=== PATIENT | female | born 1935 | race Caucasian/White ===

== ENCOUNTER → 2017-02-20 | Outpatient (CLI) | payer MEDICARE ==
[~2017-02-20] VITALS: Ht 154.9 cm; Wt 70.2 kg
[~2017-02-20] MED LIST: ASPI81TA11 PO; ATOR10TA15 PO; CALC1TAB53 PO; CELE200C PO; CHLORHEXIDINE GLUCONATE 2 % 1 PACK (2 CLOTHS) TOPICAL PRN; INSULIN HUMAN REGULAR 1,000 UNITS/10 ML VIAL SQ PRN; IPRA0.03 EACH NARE; LACTATED RINGER'S 1000 ML IV PRN; LEVO50TA4 PO; LEVO75TA3 PO; LISI-515 PO; METOPROLOL TARTRATE 25 MG TAB PO PRN; MULT1TAB PO; POVIDONE IODINE 5% (ANTISEPSIS KIT) 4 APPLICATIONS EACH NARE PRN; PROPOFOL 200 MG/20 ML AMP IV ONE; SODIUM CHLORID 0.9% 500 ML IV PRN; TEMA30CA PO; TRAM50TA PO; TUMS500C CHEW; ZANT150T2 PO
[2017-02-20 13:19] VITALS: BP 151/71; PULSE 65; RESP 16; TEMP 98.3; O2SAT 96
[2017-02-20 15:42] VITALS: TEMP 98.4
[2017-02-20 16:00] VITALS: BP 136/69; PULSE 68; RESP 18; O2SAT 96
--- NOTE | 2017-02-20 16:11 | MR ---
cc: JOHN MANN M.D. DEBBI,DAMON HOLDEN M.D., M.D. DATE: 02/20/2017. PREOPERATIVE DIAGNOSIS: Past history of polyps. POSTOPERATIVE DIAGNOSIS: Possible colon carcinoma at 45 cm. PROCEDURE PERFORMED: Incomplete colonoscopy to 45 cm due to stricture at that level and possible carcinoma. SURGEON: Ryan Emmanuel M.D. ESTIMATED BLOOD LOSS: None. OPERATIVE FINDINGS: This patient had known polyps in the past and was followed by Dr. Bang Mann but due to insurance reasons, could not return to him. A few years ago she had a colonoscopy done and she had a large polyp at about 40 cm. She was sent to [facility] for EMR resection of this. Subsequent to that, she returned to Dr. Mann and was found to have a recurrence in December of 2014, about two years ago. There was some small recurrence there that he removed. There was also a stricture there and he was able to pass the stricture with a pediatric scope to the cecum. He recommended that she come back in one year for follow up of this, and it has been two years since that time. At colonoscopy today, she was found to have extensive diverticular disease with a poor prep, probably due to the stricture. I first started with the adult colonoscope but could not get through her sigmoid and decided to use the pediatric scope and I was able to easily get through the sigmoid colon up to the lesion at 45 cm where there was a distinct stricture. It appeared to be mostly smooth but about two-thirds of it was coated with a villous-appearing tissue that was firm on biopsy. I went ahead and took multiple biopsies of this area but I could not pass this fairly tight stricture. OPERATIVE TECHNIQUE: The patient was placed on the table in the left lateral position and given intravenous monitored anesthesia care. The colonoscope was introduced through the anal canal and taken to the rectum and up into the sigmoid colon. I could pass the adult scope so I removed the adult scope and used the pediatric colonoscope. The scope was introduced into the anal canal and into the rectum, sigmoid colon, up into the upper sigmoid or distal descending colon at about 45 cm. There was a stricture and a lesion as mentioned above. Multiple biopsies were taken. This was suspicious for a carcinoma, although there may just be a stricture there from her previous EMR and recurrent polypoid disease. This likely will need surgical resection to remove. After the biopsies were taken, the scope was circumferentially removed to circumferentially look at the mucosa. She had extensive diverticular disease. The scope was removed. The patient tolerated the procedure well and left the GI lab in good position. MD PAM Ron/[place] /3:49 PM /3:54 PM
== END ==
LOC: HEND 12:41
PROVIDERS: ATTEND Colon & Rectal Surgery
DX: Z12.11 Encounter for screening for malignant neoplasm of colon (principal); Z86.010 Personal history of colon polyps; K57.90 Diverticulosis of intestine, part unspecified, without perforation or abscess without bleeding; K56.69 Other intestinal obstruction; K63.9 Disease of intestine, unspecified
CPT/HCPCS: 88305

== ENCOUNTER 2017-04-01 10:04 | Inpatient (IN) | payer MEDICARE ==
[~2017-04-01] VITALS: Ht 154.9 cm; Wt 75.8 kg
[~2017-04-01 10:04] MED LIST changes: -BEDSIDE COMMODE1 MI1; -HYDR-3516 PO; -LEVO75TA3 PO
[2017-04-01] MEDS ORDERED: LEVO75TA3 PO ×2 (11:05)
[2017-04-01] MEDS ORDERED: IPRA0.03 EACH NARE ×2 (11:08)
[2017-04-07] MEDS ORDERED: NEOSTIGMINE 3 MG/3 ML SYR IV ONE (12:00)
[2017-04-07] MEDS ORDERED: ONDANSETRON HCL 4 MG/2 ML VIAL IV PUSH ONE (12:00)
[2017-04-07] MEDS ORDERED: PROPOFOL 200 MG/20 ML AMP IV ONE (12:00)
[2017-04-07] MEDS ORDERED: ePHEDrine/NS 25 MG/5 ML SYR IV ONE (12:00)
[2017-04-07] MEDS ORDERED: LACTATED RINGER'S 1000 ML INJ 1,000 ML IV ONE (12:00)
[2017-04-07] MEDS ORDERED: ALVIMOPAN 12 MG CAPSULE ONE (12:54)
[2017-04-07] MEDS ORDERED: ceFAZolin INJ 1,000 MG VIAL ONE (12:54)
[2017-04-07] MEDS ORDERED: metroNIDAZOLE 500 MG INJ 100 ML IV ONE (12:55)
[2017-04-07] MEDS ORDERED: SODIUM CHLORIDE 0.9% INJ 100 ML ONE (12:55)
--- NOTE | 2017-04-07 13:16 | PD.HP.UP ---
H&P Update Note The Pre-Admit History and Physical Examination regarding the above named patient was reviewed (including, but not limited to, vital signs, heart, lungs, co-morbid conditions), and upon re-examination it is noted that: the patient's condition has not significantly changed since the last examination. Ryan Emmanuel MD Apr 07, 2017 13:15
[2017-04-07] MEDS ORDERED: DEXAMETHASONE SOD PHOS 4 MG/ML VIAL ONE (13:37)
[2017-04-07] MEDS ORDERED: APREPITANT 40 MG CAP ONE (13:37)
[2017-04-07] MEDS ORDERED: MIDAZOLAM HCL 2 MG/2 ML VIAL ONE (13:37)
[2017-04-07] MEDS ORDERED: POVIDONE IODINE 5% (ANTISEPSIS KIT) 4 APPLICATIONS EACH NARE PRN (13:45)
[2017-04-07] MEDS ORDERED: ceFAZolin 1,000 MG/NS 100 ML IV SCH ×2 (13:45)
[2017-04-07] MEDS ORDERED: SODIUM CHLORID 0.9% 500 ML IV PRN (13:45)
[2017-04-07] MEDS ORDERED: CHLORHEXIDINE GLUCONATE 2 % 1 PACK (2 CLOTHS) TOPICAL PRN (13:45)
[2017-04-07] MEDS ORDERED: INSULIN HUMAN REGULAR 1,000 UNITS/10 ML VIAL SQ PRN (13:45)
[2017-04-07] MEDS ORDERED: METRONIDAZOLE 500 MG/100 ML ISONTONIC SOLN IV SCH (13:45)
[2017-04-07] MEDS ORDERED: LACTATED RINGER'S 1000 ML IV PRN (13:45)
[2017-04-07] MEDS ORDERED: METOPROLOL TARTRATE 25 MG TAB PO PRN (13:45)
[2017-04-07] MEDS ORDERED: ALVIMOPAN 12 MG CAPSULE - On Call PO SCH (14:00)
[2017-04-07] MEDS ORDERED: ACETAMINOPHEN 1000 MG/100 ML VIAL IV ONE (14:51)
[2017-04-07] MEDS ORDERED: NALOXONE HCL 0.4 MG/ML AMP IV PRN (16:15)
[2017-04-07] MEDS ORDERED: KETOROLAC TROMETHAMINE 30 MG/ML (IVP) VIAL IVP PRN (16:15)
[2017-04-07] MEDS ORDERED: Post-op Orders (for Pharmacy) MISC XX ONE (16:15)
[2017-04-07] MEDS ORDERED: MORPHINE SULFATE 30 MG/30 ML PCA IV SCH (16:15)
[2017-04-07] MEDS ORDERED: POTASSIUM CHLOR 20 MEQ PREMIX 100 ML IV PRN (16:15)
[2017-04-07] MEDS ORDERED: ENALAPRILAT 1.25 MG/ML VIAL IV PRN (16:15)
[2017-04-07] MEDS ORDERED: POTASSIUM CHLOR 40 MEQ PREMIX 100 ML IV PRN (16:15)
[2017-04-07] MEDS ORDERED: ENALAPRILAT 2.5 MG/2 ML VIAL IV PRN (16:15)
[2017-04-07] MEDS: PCA - TOTAL MG MORPHINE DELIVERED PER SHIFT SCH ×2 (16:15→21:09)
[2017-04-07] MEDS ORDERED: SODIUM CHLORIDE 0.9% FLUSH 10 ML FLUSH IV FLUSH PRN (16:15)
[2017-04-07] MEDS ORDERED: BENZOCAINE 6 MG/MENTHOL 10 MG LOZENGE BUCCAL PRN (16:15)
[2017-04-07] MEDS ORDERED: ACETAMINOPHEN/HYDROcodone 325 MG/5 MG TAB PO PRN (16:15)
--- NOTE | 2017-04-07 16:18 | PD.OP ---
Operative Report Date of Surgery: Apr 07, 2017 Preoperative Diagnosis: (1) Cancer, colon Postoperative Diagnosis: (1) Cancer, colon Descending colon Procedure: Descending colectomy; colonoscopy Anesthesia: Gen E-T Surgeon: Ryan Emmanuel Insolvency Practitioner(s): Dr Gary Operation and Findings: Descending colon cancer Ryan Emmanuel MD Apr 07, 2017 16:18
[2017-04-07] MEDS ORDERED: fentaNYL CITRATE 250 MCG/5 ML AMP ONE (16:29)
[2017-04-07] MEDS ORDERED: *morphine SULFATE 8 MG/ML PERIprocedure ONLY ONE (16:37)
[2017-04-07 16:43] LABS: AUTOMATED NEUTROPHIL # 9.7 TH/MM3 (1.8-7.7); BASOPHIL % 0.3 % (0.0-2.0); EOSINOPHIL # 0.1 TH/MM3 (0-0.4); EOSINOPHIL % 0.4 % (0.0-4.0); HEMATOCRIT 40.1 % (35.0-46.0); HEMO FLAGS DIFF FINAL; LYMPH % 18.6 % (9.0-44.0); LYMPHOCYTE # 2.3 TH/MM3 (1.0-4.8); MEAN CELL VOLUME 88.4 FL (80.0-100.0); MEAN CORPUSCULAR HGB CONC 31.7 % (32.0-36.0); MONO % 3.3 % (0.0-8.0); NEUT % 77.4 % (16.0-70.0); PLATELET COUNT 262 TH/MM3 (150-450); RED BLOOD COUNT 4.53 MIL/MM3 (4.00-5.30); RED CELL DISTRIBUTION WIDTH 14.3 % (11.6-17.2); WHITE BLOOD COUNT 12.5 TH/MM3 (4.0-11.0)
[2017-04-07 17:00] LABS: BICARBONATE 21.5 MEQ/L (21.0-32.0); POTASSIUM 4.1 MEQ/L (3.5-5.1)
[2017-04-07] MEDS: D5-LR + KCL 20 MEQ INJ 1,000 ML IV SCH ×2 (17:12→22:01)
[2017-04-07] MEDS ORDERED: DO NOT ADM ANY ANTICOAGULANT DRUGS PRN (20:00)
[2017-04-07] MEDS: ceFAZolin 2 GM PREMIX 50 ML IV SCH (20:59)
[2017-04-07] MEDS: metroNIDAZOLE 500 MG INJ 100 ML IV SCH (20:59)
[2017-04-07] MEDS: SODIUM CHLORIDE 0.9% FLUSH 10 ML FLUSH IV FLUSH SCH (20:59)
[2017-04-07] MEDS ORDERED: FUROSEMIDE 20 MG/2 ML VIAL IV SCH (21:00)
[2017-04-07] MEDS: ATORVASTATIN 10 MG TAB PO SCH (21:00)
[2017-04-07 21:30] VITALS: BP 130/84; PULSE 75; RESP 10; TEMP 97.3; O2SAT 95
[2017-04-07] MEDS: DEXT 5%-NACL 0.9% 1000 ML INJ 1,000 ML IV SCH (22:00)
[2017-04-07] MEDS: ONDANSETRON HCL 4 MG/2 ML VIAL IV PRN ×2 (22:02→22:25)
[2017-04-07 23:00] VITALS: BP 140/60; PULSE 62; RESP 10; TEMP 97.4; O2SAT 96
[2017-04-08] VITALS (27 sets, daily range): BP systolic 119–147; BP diastolic 57–74; PULSE 48–88; RESP 14–18; TEMP 97.3–98.9; O2SAT 92–96
[2017-04-08] MEDS: D5-LR + KCL 20 MEQ INJ 1,000 ML IV SCH (03:55)
[2017-04-08] MEDS: ceFAZolin 2 GM PREMIX 50 ML IV SCH ×2 (04:00→13:00)
[2017-04-08] MEDS: DEXT 5%-NACL 0.9% 1000 ML INJ 1,000 ML IV SCH (05:13)
[2017-04-08] MEDS: LEVOTHYROXINE SODIUM 75 MCG TAB PO SCH (05:34)
[2017-04-08] MEDS: metroNIDAZOLE 500 MG INJ 100 ML IV SCH (05:35)
[2017-04-08] MEDS: PCA - TOTAL MG MORPHINE DELIVERED PER SHIFT SCH ×3 (05:35→21:50)
[2017-04-08 07:11] LABS: AUTOMATED NEUTROPHIL # 15.6 TH/MM3 (1.8-7.7); HEMATOCRIT 36.7 % (35.0-46.0); HEMO FLAGS DIFF FINAL; LYMPH % 5.9 % (9.0-44.0); LYMPHOCYTE # 1.1 TH/MM3 (1.0-4.8); MEAN CELL VOLUME 89.6 FL (80.0-100.0); MEAN CORPUSCULAR HEMOGLOBIN 27.9 PG (27.0-34.0); MEAN CORPUSCULAR HGB CONC 31.1 % (32.0-36.0); MONO % 9.4 % (0.0-8.0); NEUT % 84.7 % (16.0-70.0); PLATELET COUNT 270 TH/MM3 (150-450); RED BLOOD COUNT 4.09 MIL/MM3 (4.00-5.30); RED CELL DISTRIBUTION WIDTH 14.3 % (11.6-17.2); WHITE BLOOD COUNT 18.5 TH/MM3 (4.0-11.0)
--- NOTE | 2017-04-08 07:28 | MP ---
cc: TYREE EMMANUEL M.D., GREGORY J. M.D. SAXOUR, JOANNE D. M.D. DATE OF SURGERY 04/07/2017 PREOPERATIVE DIAGNOSIS Descending colon carcinoma. POSTOPERATIVE DIAGNOSIS Descending colon carcinoma. PROCEDURE Descending colectomy. ANESTHESIA General endotracheal. SURGEON Dr. Emmanuel SUPERVISOR CURING ROOM Dr. Gary ESTIMATED BLOOD LOSS 150 cc OPERATING TIME 1 hour and 45 minutes OPERATIVE FINDINGS This patient originally had a descending colon polyp treated by Dr. Bang Mann and them she was referred for EMR resection of this polyp several years ago. About a year after the MR was done, she had a mild colonic stricture at this area and had some residual polyp that was removed by Dr. Mann. The patient was told to follow up in a year and followed up in 2 years' time and at two years' time she had more of a pronounced stricture and on biopsy had adenocarcinoma present. For this reason a colectomy was recommended. She also had fairly extensive pelvic adhesions from previous hysterectomy along with some diverticulosis. She has had previous cholecystectomy and panniculectomy. At surgery today, exploration of the abdominal cavity revealed that the liver was palpably normal. The gallbladder was surgically absent. The stomach was normal as was the remainder of the colon and small bowel. The area in question was in the descending colon just over the left kidney; it was quite fibrotic probably from the EMR procedure and the inflammation and the stricture. Upon removing this area of the colon there was a small area of carcinoma present; it did not appear extensive and there was no evidence of any metastatic disease. She did have diverticulosis with some thickening of the sigmoid colon but she mainly had pelvic adhesions with looping of her sigmoid colon stuck in the pelvis to her bladder. This was all freed up and a left colectomy was done with an Ethicon LAM 55 stapling device. Intraoperative colonoscopy was done because we could not see proximal to the stricture preoperatively and a colonoscopy was normal intraoperatively. OPERATIVE TECHNIQUE The patient was placed on a table in spine position. After adequate general endotracheal anesthesia, her legs were placed in the perineal lithotomy position and the abdomen and perineum were prepped and draped in the usual manner. Midline incision was made from the pubis to the xiphoid and taken down through the linea alba and the peritoneal cavity was entered with the above-mentioned findings. There was omental adhesions to the transverse colon and the descending colon was densely stuck to the left kidney fat and kidney region. The sigmoid colon was also stuck. The left ureter was identified and protected at all times during the dissection. Since the lesion was in the upper descending colon distal to the splenic flexure, we elected to fully mobilize the sigmoid, descending colon, splenic flexure and transverse colon and resect that area and do a functional end-to-end anastomosis. The superior hemorrhoidal vessels were left intact and the descending branch of the left colic vessel was taken as the supply to this lesion. The vessels were clamped, cut and ligated and the colon had been fully mobilized along its sigmoid and descending colon and around the splenic flexure. There was a small laceration of the capsule of the spleen that was treated with electrocautery and Fibrillar. The transverse colon was fully mobilized, the omentum was fully mobilized from the transverse colon. Next, the proximal portion was chosen for division in the upper descending colon with Ethicon LAM 55 stapling device and the sigmoid colon was divided with Ethicon LAM 55 stapling device below the lesion after the mesentery had been divided. The anastomosis was carried out along the antimesenteric border of the colon using Ethicon LAM 55 stapling device and then the colotomy was closed with a TX 60 blue staple height stapling device. Two interrupted seromuscular sutures were placed at the apex of the staple line and the epiploica there were sutured together to prevent any tension on the staple line. Dr. Gary then did colonoscopy exam intraoperatively through the colon and the anastomosis to the cecum and the colonoscopy was normal. The anastomosis was leak tested with air in the colon and saline solution in the abdomen and no air leaks were identified. The scope was withdrawn and the air was also withdrawn. Hemostasis was maintained throughout with electrocautery and ligature and the abdominal contents were then replaced in the abdominal cavity in an coin box inspector manner. It should be mentioned that the sigmoid colon mobilized up out of the pelvis from the bladder flap from the hysterectomy straightening this colon. Once the bowels were replaced in the abdominal cavity in an coin box inspector manner, the abdominal cavity was closed in a single layer with a double-stranded #1 PDS closing the linea. Once this was done, the subcutaneous tissue was irrigated thoroughly with saline solution, aspirated dry. The abdominal cavity had been irrigated with several liters of saline solution, aspirated dry as well. The skin was then closed with running 3-0 Vicryl subcuticular suture and dressings were applied. Sponge, needle and instrument counts were poor as correct. The estimated blood loss was 150 cc. MD PAM Ron/[place] /4:25 PM /7:14 AM
[2017-04-08 07:41] LABS: BICARBONATE 21.1 MEQ/L (21.0-32.0); POTASSIUM 5.7 MEQ/L (3.5-5.1)
[2017-04-08] MEDS: LACTATED RINGER'S 1000 ML INJ 1,000 ML IV SCH ×2 (08:00→14:40)
[2017-04-08] MEDS ORDERED: FUROSEMIDE 40 MG/4 ML VIAL IV PUSH ONE (08:15)
--- NOTE | 2017-04-08 08:19 | HHI.PR ---
Subjective Remarks Sitting in chair. C/O nausea and pain. No vomiting. Small BM. Objective Vital Signs Date Time Temp Pulse Resp B/P Pulse Ox O2 Delivery O2 Flow Rate FiO2 04/08/17 06:00 14 04/08/17 06:00 59 04/08/17 05:35 14 04/08/17 05:00 54 04/08/17 04:00 59 04/08/17 03:30 97.5 63 14 123/72 94 04/08/17 03:30 94 Nasal Cannula 2.00 04/08/17 03:00 63 04/08/17 02:00 65 04/08/17 01:00 67 04/08/17 00:00 66 04/07/17 23:00 96 Nasal Cannula 2.00 04/07/17 23:00 97.4 62 10 140/60 96 04/07/17 21:30 97.3 75 10 130/84 95 04/07/17 21:30 95 Nasal Cannula 2.00 04/07/17 21:09 18 04/07/17 21:00 93 12 103/68 94 Nasal Cannula 4 04/07/17 20:00 98.0 95 14 158/82 95 Nasal Cannula 4 04/07/17 19:00 86 13 159/72 98 Nasal Cannula 4 04/07/17 18:19 86 20 147/111 98 Nasal Cannula 4 04/07/17 17:15 74 13 109/56 100 Nasal Cannula 4 04/07/17 17:13 12 04/07/17 17:00 72 13 115/66 99 Nasal Cannula 4 04/07/17 16:45 76 28 120/71 95 Nasal Cannula 4 04/07/17 16:30 74 12 123/64 92 Nasal Cannula 4 04/07/17 16:18 97.1 75 13 149/70 98 Simple Mask 8 I/O 04/07/17 04/07/17 04/07/17 04/08/17 04/08/17 04/08/17 07:00 15:00 23:00 07:00 15:00 23:00 Intake Total 2280 ml 3805 ml Output Total 470 ml 160 ml Balance 1810 ml 3645 ml Intake Oral 20 ml IV Total 880 ml 3785 ml Other 1400 ml Output Urine Total 300 ml 160 ml Estimated Blood Loss 170 ml # Bowel Movements 0 Result Diagram: 7/1262704/08/17627 Objective Remarks VS-S Abd: soft,binder on for comfort. I&Os- Decreased last night Labs- Creatinine up to 2.20. K+ sl elevated Assessment and Plan Assessment and Plan Stable POD#1 Increased creatinine with decreased renal function-urine remains clear. Remove K+ and Dextrose from IVs Lasix 40mg now then 20mg Q12H. IV at 150/hr Stop Toradol 15mg(only 1 dose given) Follow Renal function Ryan Emmanuel MD Apr 08, 2017 08:19
[2017-04-08] MEDS: PANTOPRAZOLE SODIUM 40 MG VIAL IVP SCH (08:52)
[2017-04-08] MEDS: LISINOPRIL 20 MG TAB PO SCH (08:53)
[2017-04-08] MEDS: ALVIMOPAN 12 MG CAPSULE - Post-op dosing PO SCH ×2 (08:53→20:22)
[2017-04-08] MEDS: ONDANSETRON HCL 4 MG/2 ML VIAL IV PRN ×2 (08:53→20:22)
[2017-04-08] MEDS: ASPIRIN EC 81 MG TABEC PO SCH (08:53)
[2017-04-08] MEDS: SODIUM CHLORIDE 0.9% FLUSH 10 ML FLUSH IV FLUSH SCH ×2 (09:00→20:22)
[2017-04-08] MEDS ORDERED: BUMETANIDE INJ 1 MG/4 ML VIAL IV ONE (17:45)
[2017-04-08] MEDS ORDERED: FUROSEMIDE 40 MG/4 ML VIAL IV PUSH SCH (20:00)
[2017-04-08] MEDS: ATORVASTATIN 10 MG TAB PO SCH (20:21)
[2017-04-08] MEDS: ACETAMINOPHEN/HYDROcodone 325 MG/5 MG TAB PO PRN (20:22)
[2017-04-08] MEDS ORDERED: ALVIMOPAN 12 MG CAPSULE PO SCH (21:00)
[2017-04-08] MEDS: ZOLPIDEM TARTRATE 5 MG TAB PO PRN (21:56)
[2017-04-09] VITALS (19 sets, daily range): BP systolic 118–169; BP diastolic 54–91; PULSE 62–92; RESP 16–18; TEMP 97.5–99.1; O2SAT 93–95
[2017-04-09] MEDS: LACTATED RINGER'S 1000 ML INJ 1,000 ML IV SCH ×4 (02:02→20:13)
[2017-04-09] MEDS: ACETAMINOPHEN/HYDROcodone 325 MG/5 MG TAB PO PRN ×2 (03:22→08:30)
[2017-04-09] MEDS: LEVOTHYROXINE SODIUM 75 MCG TAB PO SCH (05:36)
[2017-04-09] MEDS: PCA - TOTAL MG MORPHINE DELIVERED PER SHIFT SCH ×2 (05:36→14:00)
[2017-04-09] MEDS ORDERED: BUMETANIDE INJ 1 MG/4 ML VIAL IV PUSH ONE (06:00)
[2017-04-09] MEDS: PANTOPRAZOLE SODIUM 40 MG VIAL IVP SCH (08:29)
[2017-04-09] MEDS: ALVIMOPAN 12 MG CAPSULE - Post-op dosing PO SCH ×2 (08:29→20:13)
[2017-04-09] MEDS: SODIUM CHLORIDE 0.9% FLUSH 10 ML FLUSH IV FLUSH SCH ×2 (08:30→20:13)
[2017-04-09] MEDS: ASPIRIN EC 81 MG TABEC PO SCH (08:30)
[2017-04-09 10:12] LABS: AUTOMATED NEUTROPHIL # 11.3 TH/MM3 (1.8-7.7); BASOPHIL % 0.1 % (0.0-2.0); EOSINOPHIL # 0.1 TH/MM3 (0-0.4); EOSINOPHIL % 0.7 % (0.0-4.0); HEMATOCRIT 28.5 % (35.0-46.0); HEMO FLAGS DIFF FINAL; LYMPH % 10.9 % (9.0-44.0); LYMPHOCYTE # 1.5 TH/MM3 (1.0-4.8); MEAN CORPUSCULAR HEMOGLOBIN 28.5 PG (27.0-34.0); MEAN CORPUSCULAR HGB CONC 32.4 % (32.0-36.0); MONO % 6.5 % (0.0-8.0); NEUT % 81.8 % (16.0-70.0); PLATELET COUNT 209 TH/MM3 (150-450); RED BLOOD COUNT 3.24 MIL/MM3 (4.00-5.30); RED CELL DISTRIBUTION WIDTH 15.2 % (11.6-17.2); WHITE BLOOD COUNT 13.9 TH/MM3 (4.0-11.0)
[2017-04-09 10:54] LABS: BICARBONATE 25.6 MEQ/L (21.0-32.0); POTASSIUM 4.1 MEQ/L (3.5-5.1)
[2017-04-09] MEDS: LISINOPRIL 20 MG TAB PO SCH (12:24)
--- NOTE | 2017-04-09 13:36 | HHI.PR ---
Subjective Remarks Ambulated. Less pain. No N or V. No BMs Objective Vital Signs Date Time Temp Pulse Resp B/P Pulse Ox O2 Delivery O2 Flow Rate FiO2 04/09/17 12:11 94 04/09/17 12:00 73 04/09/17 12:00 94 Nasal Cannula 2.00 04/09/17 12:00 98.9 73 16 125/57 94 04/09/17 08:00 66 04/09/17 08:00 93 Room Air 04/09/17 08:00 98.6 84 18 124/68 93 04/09/17 06:00 62 04/09/17 06:00 16 04/09/17 05:36 16 04/09/17 05:00 68 04/09/17 04:00 83 04/09/17 03:30 95 Nasal Cannula 2.00 04/09/17 03:30 99.1 78 16 121/54 95 04/09/17 03:00 71 04/09/17 02:00 71 04/09/17 01:00 71 04/09/17 00:00 66 04/08/17 23:20 98.3 82 16 124/57 92 04/08/17 23:20 Nasal Cannula 2.00 04/08/17 23:00 70 04/08/17 22:00 16 04/08/17 22:00 76 04/08/17 21:50 16 04/08/17 21:00 82 04/08/17 20:00 72 04/08/17 19:45 98.4 74 16 126/58 94 04/08/17 19:00 69 04/08/17 18:03 82 04/08/17 17:26 53 04/08/17 16:00 69 04/08/17 15:00 60 04/08/17 15:00 97.3 60 18 119/74 96 04/08/17 14:28 88 04/08/17 14:28 18 I/O 04/08/17 04/08/17 04/08/17 04/09/17 04/09/17 04/09/17 07:00 15:00 23:00 07:00 15:00 23:00 Intake Total 3805 ml 2450 ml 1680 ml Output Total 160 ml 150 ml 1125 ml Balance 3645 ml 2300 ml 555 ml Intake Oral 20 ml 600 ml 480 ml IV Total 3785 ml 1850 ml 1200 ml Output Urine Total 160 ml 150 ml 1125 ml # Bowel Movements 0 1 0 Result Diagram: 04/09/1740 04/09/1740 Objective Remarks VS-S Abd: soft,binder on for comfort. I&Os- Much better with Bumex Labs- Improved renal function Assessment and Plan Assessment and Plan Stable POD#2 IV at 50/hr Follow Renal function Ryan Emmanuel MD Apr 09, 2017 13:36
[2017-04-09] MEDS: BUMETANIDE INJ 1 MG/4 ML VIAL IV PUSH SCH (20:12)
[2017-04-09] MEDS: ATORVASTATIN 10 MG TAB PO SCH (20:13)
[2017-04-09] MEDS: ZOLPIDEM TARTRATE 5 MG TAB PO PRN (21:52)
[2017-04-10] VITALS: BP 132/61; PULSE 86; RESP 18; TEMP 98.6; O2SAT 94
[2017-04-10] MEDS: ACETAMINOPHEN/HYDROcodone 325 MG/5 MG TAB PO PRN (01:12)
[2017-04-10] MEDS: LEVOTHYROXINE SODIUM 75 MCG TAB PO SCH (04:50)
[2017-04-10 06:05] LABS: BICARBONATE 27.8 MEQ/L (21.0-32.0); POTASSIUM 4.2 MEQ/L (3.5-5.1)
[2017-04-10] MEDS: LISINOPRIL 20 MG TAB PO SCH (07:39)
[2017-04-10] MEDS: PANTOPRAZOLE SODIUM 40 MG VIAL IVP SCH (07:40)
[2017-04-10] MEDS: ASPIRIN EC 81 MG TABEC PO SCH (07:40)
[2017-04-10] MEDS: ALVIMOPAN 12 MG CAPSULE - Post-op dosing PO SCH ×2 (07:40→20:03)
[2017-04-10] MEDS: BUMETANIDE INJ 1 MG/4 ML VIAL IV PUSH SCH (07:40)
[2017-04-10] MEDS: SODIUM CHLORIDE 0.9% FLUSH 10 ML FLUSH IV FLUSH SCH ×2 (07:40→20:00)
[2017-04-10 08:00] VITALS: BP 146/62; PULSE 78; RESP 16; TEMP 98; O2SAT 94
[2017-04-10] MEDS: ONDANSETRON HCL 4 MG/2 ML VIAL IV PRN (09:35)
[2017-04-10 12:00] VITALS: BP 139/65; PULSE 75; RESP 17; TEMP 97.3; O2SAT 95
--- NOTE | 2017-04-10 15:06 | HHI.PR ---
Subjective Remarks Ambulated. Less pain. No Vomiting. No BMs. Some flatus Objective Vital Signs Date Time Temp Pulse Resp B/P Pulse Ox O2 Delivery O2 Flow Rate FiO2 04/10/17 12:00 97.3 75 17 139/65 95 04/10/17 08:00 98.0 78 16 146/62 94 04/10/17 02:12 18 04/10/17 00:00 98.6 86 18 132/61 94 04/09/17 20:50 Nasal Cannula 2.00 04/09/17 20:00 97.5 71 18 149/68 94 04/09/17 18:20 98.0 73 18 169/91 93 04/09/17 15:30 98.2 66 18 118/58 95 04/09/17 15:30 95 Room Air I/O 04/09/17 04/09/17 04/09/17 04/10/17 04/10/17 04/10/17 06:59 14:59 22:59 06:59 14:59 22:59 Intake Total 1680 ml 325 ml 2050 ml 838 ml 495 ml Output Total 1125 ml 3250 ml 1800 ml Balance 555 ml 325 ml -1200 ml -962 ml 495 ml Intake Oral 480 ml 1220 ml 320 ml IV Total 1200 ml 325 ml 830 ml 518 ml 495 ml Output Urine Total 1125 ml 3250 ml 1800 ml # Bowel Movements 0 0 0 Result Diagram: 04/09/17 0940 04/10/17 0443 Objective Remarks VS-S Abd: soft, incision clean I&Os- Much better with Bumex Labs- Improved renal function Assessment and Plan Assessment and Plan Stable POD#3. T1N0 lesion IV at 25/hr Bumex in AM Home tomorrow or Thursday Ryan Emmanuel MD Apr 10, 2017 15:06
[2017-04-10 16:00] VITALS: BP 112/55; PULSE 74; RESP 16; TEMP 99; O2SAT 94
[2017-04-10 20:00] VITALS: BP 168/72; PULSE 74; RESP 19; TEMP 97.7; O2SAT 94
[2017-04-10] MEDS: ATORVASTATIN 10 MG TAB PO SCH (20:03)
[2017-04-10] MEDS: LACTATED RINGER'S 1000 ML INJ 1,000 ML IV SCH (20:04)
[2017-04-10] MEDS: ZOLPIDEM TARTRATE 5 MG TAB PO PRN (21:22)
[2017-04-11] VITALS: BP 136/63; PULSE 76; RESP 20; TEMP 96.9; O2SAT 94
[2017-04-11] MEDS: LEVOTHYROXINE SODIUM 75 MCG TAB PO SCH (05:43)
[2017-04-11] MEDS ORDERED: BUMETANIDE INJ 1 MG/4 ML VIAL IV PUSH ONE (07:00)
[2017-04-11 08:00] VITALS: BP 155/69; PULSE 69; RESP 19; TEMP 97.5; O2SAT 96
[2017-04-11] MEDS: ASPIRIN EC 81 MG TABEC PO SCH (08:18)
[2017-04-11] MEDS: LISINOPRIL 20 MG TAB PO SCH (08:19)
[2017-04-11] MEDS: PANTOPRAZOLE SODIUM 40 MG VIAL IVP SCH (08:19)
[2017-04-11] MEDS: SODIUM CHLORIDE 0.9% FLUSH 10 ML FLUSH IV FLUSH SCH ×2 (08:19→22:36)
[2017-04-11] MEDS: ALVIMOPAN 12 MG CAPSULE - Post-op dosing PO SCH ×2 (08:19→22:36)
--- NOTE | 2017-04-11 11:17 | HHI.PR ---
Subjective Remarks POD#4 s/p descending colectomy Moving bowels ok Objective Vital Signs Date Time Temp Pulse Resp B/P Pulse Ox O2 Delivery O2 Flow Rate FiO2 04/11/17 08:00 97.5 69 19 155/69 96 04/11/17 00:00 96.9 76 20 136/63 94 04/10/17 20:00 97.7 74 19 168/72 94 04/10/17 19:54 Room Air 04/10/17 16:00 99.0 74 16 112/55 94 04/10/17 12:00 97.3 75 17 139/65 95 I/O 04/10/17 04/10/17 04/10/17 04/11/17 04/11/17 04/11/17 06:59 14:59 22:59 06:59 14:59 22:59 Intake Total 838 ml 735 ml 407 ml 449 ml 120 ml Output Total 1800 ml 300 ml 500 ml Balance -962 ml 435 ml -93 ml 449 ml 120 ml Intake Oral 320 ml 240 ml 240 ml 240 ml 120 ml IV Total 518 ml 495 ml 167 ml 209 ml Output Urine Total 1800 ml 300 ml 500 ml # Voids 1 # Bowel Movements 0 0 1 1 Result Diagram: 04/09/17 0940 04/10/17 0443 Objective Remarks Abdomen soft, nondistended, tender Wound clean Assessment and Plan Assessment and Plan Doing well HL IV Home tomorrow Kate Azevedo MD Apr 11, 2017 11:17
[2017-04-11] MEDS ORDERED: BEDSIDE COMMODE1 MI1 (11:19)
[2017-04-11 12:00] VITALS: BP 137/91; PULSE 74; RESP 17; TEMP 98.3; O2SAT 95
[2017-04-11 16:00] VITALS: BP 132/62; PULSE 77; RESP 20; TEMP 98.8; O2SAT 95
[2017-04-11 20:00] VITALS: BP 145/63; PULSE 71; RESP 17; TEMP 97.7; O2SAT 96
[2017-04-11] MEDS: ATORVASTATIN 10 MG TAB PO SCH (22:36)
[2017-04-12] VITALS: BP 122/68; PULSE 68; RESP 17; TEMP 97; O2SAT 98
[2017-04-12] MEDS: LACTATED RINGER'S 1000 ML INJ 1,000 ML IV SCH (03:54)
[2017-04-12] MEDS: LEVOTHYROXINE SODIUM 75 MCG TAB PO SCH (05:07)
[2017-04-12] MEDS: ASPIRIN EC 81 MG TABEC PO SCH (07:45)
[2017-04-12] MEDS: ALVIMOPAN 12 MG CAPSULE - Post-op dosing PO SCH (07:45)
[2017-04-12] MEDS: LISINOPRIL 20 MG TAB PO SCH (07:45)
[2017-04-12] MEDS: PANTOPRAZOLE SODIUM 40 MG VIAL IVP SCH (07:46)
[2017-04-12] MEDS: SODIUM CHLORIDE 0.9% FLUSH 10 ML FLUSH IV FLUSH SCH (07:46)
[2017-04-12 08:00] VITALS: BP 147/64; PULSE 71; RESP 19; TEMP 97.6; O2SAT 98
[2017-04-12] MEDS: ACETAMINOPHEN/HYDROcodone 325 MG/5 MG TAB PO PRN (09:41)
[2017-04-12 12:00] VITALS: BP 133/63; PULSE 63; RESP 19; TEMP 97.7; O2SAT 95
--- NOTE | 2017-04-12 13:22 | HHI.PR ---
Subjective Remarks POD#5 s/p descending colectomy Comfortable, wants to go home Objective Vital Signs Date Time Temp Pulse Resp B/P Pulse Ox O2 Delivery O2 Flow Rate FiO2 04/12/17 12:00 97.7 63 19 133/63 95 04/12/17 08:00 97.6 71 19 147/64 98 04/12/17 00:00 97.0 68 17 122/68 98 04/11/17 22:35 Room Air 04/11/17 20:00 97.7 71 17 145/63 96 04/11/17 16:00 98.8 77 20 132/62 95 I/O 04/11/17 04/11/17 04/11/17 04/12/17 04/12/17 04/12/17 07:00 15:00 23:00 07:00 15:00 23:00 Intake Total 449 ml 1223 ml 240 ml 240 ml 120 ml Output Total 600 ml Balance 449 ml 623 ml 240 ml 240 ml 120 ml Intake Oral 240 ml 1080 ml 240 ml 240 ml 120 ml IV Total 209 ml 143 ml 0 ml 0 ml Output Urine Total 600 ml # Voids 1 2 2 # Bowel Movements 1 2 Result Diagram: 04/09/17 0940 04/10/17 0443 Objective Remarks Abdomen soft, nondistended, tender Wound clean Assessment and Plan Assessment and Plan Home FOllowup with Kate Kendrick 2, MD Apr 12, 2017 13:21
[2017-04-12] MEDS ORDERED: HYDR-3516 PO (13:24)
== END 2017-04-12 14:26 | disposition home or self-care (01) | DRG 331 ==
LOC: HSDI 04-07 11:35 → HCIN 04-07 22:16 → N07A 04-09 18:20
PROVIDERS: ADMIT Colon & Rectal Surgery; ATTEND Colon & Rectal Surgery
PROC: 0DNW0ZZ Release Peritoneum, Open Approach (ICD-10-PCS; 2017-04-07)
PROC: 0DJD8ZZ Inspection of Lower Intestinal Tract, Via Natural or Artificial Opening Endoscopic (ICD-10-PCS; 2017-04-07)
PROC: 0DTM0ZZ Resection of Descending Colon, Open Approach (ICD-10-PCS; principal; 2017-04-07 13:41)
DX: C18.6 Malignant neoplasm of descending colon (principal); G62.9 Polyneuropathy, unspecified; I10 Essential (primary) hypertension; K66.0 Peritoneal adhesions (postprocedural) (postinfection); E66.9 Obesity, unspecified; Z68.31 Body mass index [BMI] 31.0-31.9, adult; R94.4 Abnormal results of kidney function studies; E78.5 Hyperlipidemia, unspecified; M54.9 Dorsalgia, unspecified; E03.9 Hypothyroidism, unspecified
CPT/HCPCS: 80048; 85025; 86850; 86900; 86901; 88309; 94150; C9113; J0131; J0690; J1100; J1885; J1940; J2250; J2270; J2405; J2710; J3010; J3480; J7120; J8501

== ENCOUNTER → 2017-04-01 | Outpatient (CLI) | payer MEDICARE ==
[~2017-04-01] MED LIST changes: +BEDSIDE COMMODE1 MI1; -CHLORHEXIDINE GLUCONATE 2 % 1 PACK (2 CLOTHS) TOPICAL PRN; +HYDR-3516 PO; -INSULIN HUMAN REGULAR 1,000 UNITS/10 ML VIAL SQ PRN; -LACTATED RINGER'S 1000 ML IV PRN; -METOPROLOL TARTRATE 25 MG TAB PO PRN; -POVIDONE IODINE 5% (ANTISEPSIS KIT) 4 APPLICATIONS EACH NARE PRN; -PROPOFOL 200 MG/20 ML AMP IV ONE; -SODIUM CHLORID 0.9% 500 ML IV PRN
[2017-04-01 11:39] LABS: BASOPHIL # 0.1 TH/MM3 (0-0.2); BASOPHIL % 0.9 % (0.0-2.0); EOSINOPHIL # 0.2 TH/MM3 (0-0.4); EOSINOPHIL % 3.5 % (0.0-4.0); HEMATOCRIT 38.7 % (35.0-46.0); HEMO FLAGS DIFF FINAL; LYMPH % 36.6 % (9.0-44.0); LYMPHOCYTE # 2.2 TH/MM3 (1.0-4.8); MEAN CELL VOLUME 88.6 FL (80.0-100.0); MEAN CORPUSCULAR HEMOGLOBIN 27.9 PG (27.0-34.0); MEAN CORPUSCULAR HGB CONC 31.5 % (32.0-36.0); MONO % 9.8 % (0.0-8.0); NEUT % 49.2 % (16.0-70.0); PLATELET COUNT 259 TH/MM3 (150-450); RED BLOOD COUNT 4.37 MIL/MM3 (4.00-5.30); RED CELL DISTRIBUTION WIDTH 14.5 % (11.6-17.2)
[2017-04-01 11:46] LABS: APTT (PATIENT) 24.3 SEC (24.3-30.1); INTERNATIONAL NORMALIZED RATIO 0.9 RATIO; PROTHROMBIN TIME - PATIENT 10.3 SEC (9.8-11.6)
[2017-04-01 11:47] LABS: BACTERIA, URINE FEW /hpf; BLOOD, URINE NEG (NEG); GLUCOSE,URINE NEG (NEG); KETONE, URINE NEG (NEG); MUCUS URINE FEW /lpf (OCC); NITRITE,URINE NEG (NEG); SQUAMOUS EPITHELIAL CELL URINE 2 /hpf (0-5); URINE COLOR YELLOW (YELLW/STRAW)
[2017-04-01 11:51] LABS: COMMENT (UR) CULT NOT INDICATED; CULTURE IF INDICATED CULT NOT INDICATED
[2017-04-01 12:02] LABS: ALT (GPT) 31 U/L (10-53); ANION GAP 6 MEQ/L (5-15); AST (GOT) 19 U/L (15-37); BICARBONATE 28.7 MEQ/L (21.0-32.0); BLOOD UREA NITROGEN 21 MG/DL (7-18); CHLORIDE 107 MEQ/L (98-107); GLOMERULAR FILTRATION RATE 47 ML/MIN (>89); POTASSIUM 4.4 MEQ/L (3.5-5.1); SODIUM (NA) 142 MEQ/L (136-145)
[2017-04-01 12:05] LABS: ALKALINE PHOSPHATASE 69 U/L (45-117); TOTAL BILIRUBIN ADULT 0.2 MG/DL (0.2-1.0)
--- NOTE | 2017-04-01 12:12 | RADRPT ---
EXAM DATE/TIME: 04/01/2017 11:55 [place] COMPARISON: No previous studies available for comparison. INDICATIONS : Pre-op descending colectomy. Evaluate for pneumonia, pneumothorax, and communicable disease. MEDICAL HISTORY : None. SURGICAL HISTORY : None. ENCOUNTER: Initial ACUITY: 1 day PAIN SCORE: 0/10 LOCATION: Bilateral chest FINDINGS: The cardiac silhouette is normal in transverse diameter. The lungs are free of acute parenchymal opac ity. No effusions are identified. There is eventration of the right hemidiaphragm. There is mild mul tilevel degenerative change throughout the spine. CONCLUSION: 1. No acute cardiopulmonary disease. Cleve Richmond MD on April 01, 2017 at 12:09 Board Certified Radiologist. This report was verified electronically.
== END ==
LOC: CPRE 10:23
PROVIDERS: ATTEND Colon & Rectal Surgery
DX: Z01.812 Encounter for preprocedural laboratory examination (principal); Z01.811 Encounter for preprocedural respiratory examination; C18.7 Malignant neoplasm of sigmoid colon
CPT/HCPCS: 71020; 80053; 81001; 82378; 85025; 85610; 85730; 86850; 86900; 86901